=== PATIENT | male | born 1965 | race Caucasian/White ===

== ENCOUNTER 2019-10-01 10:08 | Day surgery (SDC) | payer BC ==
[~2019-10-01 10:08] MED LIST: Lactated Ringers 1,000 ML IV SCH
[2019-10-01] MEDS ORDERED: Propofol 200 MG/20 ML SDV ONE (10:49)
[2019-10-01] MEDS ORDERED: Lidocaine 2% 5 ML SDV ONE (10:49)
--- NOTE | 2019-10-01 11:18 | PCM.PREANE ---
Preanesthetic Assessment - Anesthesia/Transfusion/Family Hx Anesthesia History: Prior Anesthesia Without Reaction Family History of Anesthesia Reaction: No Transfusion History: No Prior Transfusion(s) - Review of Systems General: No Symptoms Pulmonary: No Symptoms Cardiovascular: No Symptoms Gastrointestinal: No Symptoms Neurological: No Symptoms - Physical Assessment Vital Signs: Last Vital Signs Temp 98.1 F 10/01/19 10:20 Pulse 69 10/01/19 10:20 Resp 16 10/01/19 10:20 BP 134/80 10/01/19 10:20 Pulse Ox 99 10/01/19 10:20 Height: 6 ft Weight: 94.347 kg ASA Class: 1 Mental Status: Alert & Oriented x3 Dentition: Reports: Normal Dentition ROM/Head Extension: Full Lungs: Clear to Auscultation, Normal Respiratory Effort Cardiovascular: Regular Rate, Regular Rhythm - Allergies Allergies/Adverse Reactions: Allergies Allergy/AdvReac Type Severity Reaction Status Date / Time No Known Allergies Allergy Verified 10/01/19 10:48 - Blood Blood Available: No - Anesthesia Plan Pre-Op Medication Ordered: None - Acknowledgements Anesthesia Type Planned: General Anesthesia Pt an Appropriate Candidate for the Planned Anesthesia: Yes Alternatives and Risks of Anesthesia Discussed w Pt/Guardian: Yes Pt/Guardian Understands and Agrees with Anesthesia Plan: Yes PreAnesthesia Questionnaire HEENT History: Reports: Other (See Below) Other HEENT History: dental implants, glasses only for driving Cardiovascular History: Reports: High Cholesterol, Hypertension Respiratory History: Reports: None Gastrointestinal History: Reports: Other (See Below) Other Gastrointestinal History: occasional heartburn Genitourinary History: Reports: None Musculoskeletal History: Reports: Fracture Other Musculoskeletal History: hx fx hand Neurological History: Reports: None Psychiatric History: Reports: None Endocrine/Metabolic History: Reports: None Hematologic History: Reports: None Immunologic History: Reports: None Oncologic (Cancer) History: Reports: None Dermatologic History: Reports: None - Past Surgical History Head Surgeries/Procedures: Reports: None HEENT Surgical History: Reports: None Cardiovascular Surgical History: Reports: None Respiratory Surgical History: Reports: None GI Surgical History: Reports: None Male Surgical History: Reports: Vasectomy Endocrine Surgical History: Reports: None Neurological Surgical History: Reports: None Musculoskeletal Surgical History: Reports: None Oncologic Surgical History: Reports: None Dermatological Surgical History: Reports: None - SUBSTANCE USE Smoking Status *Q: Never Smoker - HOME MEDS Home Medications: Home Meds Lisinopril [Zestril] 40 mg PO DAILY 09/29/19 [History] Simvastatin 20 mg PO DAILY 09/29/19 [History] - CURRENT (IN HOUSE) MEDS Current Meds: Current Medications Lactated Ringer's (Ringers, Lactated) 1,000 mls @ 125 mls/hr IV ASDIRECTED ISAI Last Admin: 10/01/19 10:50 Dose: 125 mls/hr Discontinued Medications Lidocaine (Xylocaine-Mpf 2%) Confirm Administered Dose 5 ml .ROUTE .STK-MED ONE Stop: 10/01/19 10:50 Propofol (Diprivan 20 Ml) Confirm Administered Dose 600 mg .ROUTE .STK-MED ONE Stop: 10/01/19 10:50
--- NOTE | 2019-10-01 11:54 | PCM.OPNOTE ---
- General Post-Op/Procedure Note Date of Surgery/Procedure: 10/01/19 Operative Procedure(s): Colonoscopy Pre Op Diagnosis: Rectal bleeding. Family history of colon cancer. Post-Op Diagnosis: Sigmoid diverticulosis. Hemorrhoids. Anesthesia Technique: MAC (ASA I) Primary Surgeon: Denver Ellison Condition: Good Free Text/Narrative:: DICTATION 476108 CPT CODE 89031
[2019-10-01] MEDS ORDERED: Lactated Ringers 1,000 ML IV SCH (12:00)
--- NOTE | 2019-10-01 12:59 | PCM.POSTAN ---
POST ANESTHESIA ASSESSMENT - MENTAL STATUS Mental Status: Alert, Oriented - VITAL SIGNS Vital Signs: Last Vital Signs Temp 98.1 F 10/01/19 10:20 Pulse 62 10/01/19 12:09 Resp 16 10/01/19 12:09 BP 101/64 10/01/19 12:09 Pulse Ox 97 10/01/19 12:09 - RESPIRATORY Respiratory Status: Respiratory Rate WNL, Airway Patent, O2 Saturation Stable - CARDIOVASCULAR CV Status: Pulse Rate WNL, Blood Pressure Stable - GASTROINTESTINAL GI Status: No Symptoms - POST OP HYDRATION Hydration Status: Adequate & Stable
--- NOTE | 2019-10-01 12:59 | PCM48HPAN ---
Post Anesthesia Note - EVALUATION WITHIN 48HRS OF ANESTHETIC Vital Signs in Normal Range: Yes Patient Participated in Evaluation: Yes Respiratory Function Stable: Yes Airway Patent: Yes Cardiovascular Function Stable: Yes Hydration Status Stable: Yes Pain Control Satisfactory: Yes Nausea and Vomiting Control Satisfactory: Yes Mental Status Recovered: Yes Vital Signs: Last Vital Signs Temp 98.1 F 10/01/19 10:20 Pulse 62 10/01/19 12:09 Resp 16 10/01/19 12:09 BP 101/64 10/01/19 12:09 Pulse Ox 97 10/01/19 12:09
--- NOTE | 2019-10-01 15:24 | OR ---
SURGEON: Denver Ellison M.D. DATE OF PROCEDURE: 10/01/2019 OPERATION PERFORMED: Colonoscopy. PRIMARY SURGEON: Denver Ellison MD. ANESTHESIA: MAC. ASA CLASSIFICATION: I. PREOPERATIVE DIAGNOSES: 1. Rectal bleeding. 2. Family history of colon cancer. POSTOPERATIVE DIAGNOSES: 1. Sigmoid diverticulosis. 2. Hemorrhoids. DESCRIPTION OF PROCEDURE: The patient was taken to the endoscopy room and positioned on the endoscopy table in the left lateral decubitus position. Time-out was called for appropriate identification of the patient and procedure. Monitored anesthesia care was provided. The colonoscope was inserted into the rectum and advanced with minimal difficulty to the cecum. The cecum was identified by internal landmarks and external pressure. The colonoscope was retroflexed to visualize the ascending colon from below, then straightened and slowly withdrawn. The cecum, ascending colon, hepatic flexure, transverse colon, splenic flexure, and descending colon showed no tumors, polyps, diverticula, or angiodysplastic changes. The sigmoid colon demonstrated a few scattered diverticula. No blood was seen anywhere in the lower gastrointestinal tract. Once the colonoscope was withdrawn to the rectum, it was retroflexed to visualize the anal orifice from above. The patient does have some hemorrhoids. There was no acute bleeding noted. The colonoscope was then straightened, the rectum aspirated, and the colonoscope removed. The patient tolerated the procedure well and was taken to recovery room in stable condition. TIFFANIE / MARKO /[id number]
== END 2019-10-01 12:35 | disposition home or self-care (01) ==
LOC: MW.SDS 10:08
PROVIDERS: ATTEND Surgery
DX: K57.31 Diverticulosis of large intestine without perforation or abscess with bleeding (principal); K64.9 Unspecified hemorrhoids; I10 Essential (primary) hypertension; E78.00 Pure hypercholesterolemia, unspecified; F17.210 Nicotine dependence, cigarettes, uncomplicated; Z79.899 Other long term (current) drug therapy; Z80.0 Family history of malignant neoplasm of digestive organs; Z98.52 Vasectomy status
CPT/HCPCS: 45378; J2001; J2704; J7120